=== PATIENT | male | born 1950 | race Caucasian/White ===

== ENCOUNTER 2019-08-03 08:00 | Outpatient (CLI) | payer MEDICARE, OTHER, SELFPAY ==
[2019-08-03 17:56] LABS: INR 0.96 (0.8-1.2)
[2019-08-03 18:03] LABS: Alanine Aminotransferase 26 U/L (0-41); Albumin Level 4.6 g/dL (3.5-5.2); Alkaline Phosphatase 78 IU/L (40-130); Anion Gap 17.2 (5-19); Blood Urea Nitrogen 14 mg/dL (8-23); Calcium 10.2 mg/dL (8.5-10.5); Carbon Dioxide 25 mmol/L (22-29); Chloride 103 mmol/L (98-107); Globulin 2.2 g/dL (1.3-4.6); Glomerular Filtration Rate 111.5 mL/min (90-130); Glucose 84 mg/dL (65-115); Osmolality Calculated 287 mOsm/kg (285-295); Potassium 4.2 mmol/L (3.5-5.1); Sodium 141 mmol/L (136-145); Total Bilirubin 1.2 mg/dL (0.15-1.2); Total Protein 6.8 g/dL (6.6-8.7)
[2019-08-03 18:14] LABS: Basophils % 0.4 %; Eosinophils % 0.4 %; Hemoglobin 15.6 g/dL (11.7-16.6); Lymphocytes # 0.9 10^3/uL (0.8-4.8); Lymphocytes % 15.7 %; Mean Corpuscular HGB Conc 31.8 g/dL (30.0-36.0); Mean Corpuscular Hemoglobin 28.7 pg (28.0-34.0); Mean Corpuscular Volume 90.1 fL (80-94); Mean Platelet Volume 10.4 fL (7.4-10.4); Monocytes # 0.4 10^3/uL (0.2-0.9); Monocytes % 7.9 %; Neutrophils # 4.2 10^3/uL (1.8-7.7); Neutrophils % 75.4 %; Nucleated Red Blood Cells % 0 %; Platelet Count 193 10^3/cmm (130-400); Red Blood Count 5.44 10^6/uL (4.1-5.3); Red Cell Distribution Width 13.7 % (12.1-15.1); White Blood Count 5.6 10^3/uL (4.0-10.0)
[2019-08-03 19:12] LABS: Aspartate Amino Transferase 27 U/L (0-40)
== END 2019-08-03 09:00 | disposition home or self-care (01) ==
LOC: RAD 01-11 13:32
PROVIDERS: Family Provider Family Medicine; PCP Family Medicine; Visit Provider Internal Medicine Cardiovascular Disease
DX: R07.89 Other chest pain (principal); Z79.01 Long term (current) use of anticoagulants
CPT/HCPCS: 80053; 85025; 85610; 86850; 86900

== ENCOUNTER 2019-08-04 18:39 | Outpatient (CLI) | payer MEDICARE, OTHER, SELFPAY ==
--- NOTE | 2019-08-03 16:30 | XRR_ITS ---
PROCEDURE INFORMATION: Exam: XR Chest, 2 Views Exam date and time: 08/03/2019 5:29 PM Age: 69 years old Clinical indication: Device placement; Other: Pre op; Additional info: Pre cath TECHNIQUE: Imaging protocol: XR of the chest Views: 2 views. COMPARISON: No relevant prior studies available. FINDINGS: Lungs: Unremarkable. No consolidation. The lungs are hyperinflated but clear. Pleural space: Unremarkable. No pleural effusion. No pneumothorax. Heart/Mediastinum: Unremarkable. No cardiomegaly. Bones/joints: Unremarkable. There is osteopenia with moderate degenerative changes. XR/XR chest 2V* [id number] IMPRESSION: No acute findings.
[2019-08-04] VITALS (10 sets, daily range): BP systolic 103–138; BP diastolic 52–89; PULSE 52–84; RESP 14–20; O2SAT 94–98; BMI 29.9
--- NOTE | 2019-08-04 10:38 | XACV_ITS ---
Ht: 185 cm Wt: 98 kg BSA: 2.26 m2 Gender: Male : 1950 Any Known Allergies: No known allergies Exam Priority: Routine Procedure(s): Procedure Description: Diagnostic procedure Procedure Description: Left Heart Catheterization Procedure Description: Left ventriculography Procedure Description: Coronary Angiography Procedure Description: Pressure Wire Diagnostic Cath Status: Elective Diagnostic Findings Mid Left Anterior Descending Coronary Artery: Mild 45% stenosis, 5.00 mm in length, JAMIL: 3 flow, FFR performed: ratio is 0.8. Coronary angiography shows right dominance. Left main is a medium caliber vessel with mild diffuse disease. Moderate calcification was noted in the artery. The left artery descending artery is a medium caliber vessel which appears to wrap around the LV apex minimally. The artery was found to have extensive calcification in the proximal and mid segment. In the mid LAD, there was a segmental narrowing of around 50 to 60% with extensive calcification. The proximal LAD, near the ostium was found to have heavy calcification with a moderate narrowing. The left circumflex artery is a medium to large caliber vessel with was found to have mild to moderate diffuse narrowing in the proximal and mid segment. At the mid segment, the artery appears to trifurcate. All the trifurcation branches also were found to have mild to moderate diffuse narrowing in the proximal segment. Extensive calcification was noted in the proximal and mid segment of the artery. The distal segments of the artery were found to have no significant stenotic lesions. The right coronary artery was found to have a tapering narrowing of around 95% towards the first RV branch. Moderate ostial narrowing with calcification was noted. The mid RCA was found to be totally occluded. Interventional Findings Fractional flow reserve was performed from beyond the mid LAD lesion. The FFR 0.8. The lesion does not look severe and the lesion in the ostial LAD is also calcified and does not look severe. Patient is asymptomatic. Plan will be medical treatment with perfusion scan. Conclusions This is a 69-year-old white male with history of hypertension, dyslipidemia had a calcium score which was found to be in the 6000 range. He has been complaining of some atypical chest symptoms and shortness of breath with activities. For further evaluation of his coronary status, a coronary angiogram was thought to be appropriate. Patient underwent left heart catheterization with left and right coronary angiogram and LV angiogram today. The findings are as follows. Moderate to heavy diffuse calcification was noted in the proximal to mid segments of all the 3 coronary arteries. There was a 50 to 60% stenosis with heavy calcification in the mid LAD. Moderate to heavy calcification in the proximal LAD, near to the ostium with a moderate narrowing. The right coronary artery was found to be totally occluded at the mid segment. Mild diffuse disease was noted in the other vessels. Normal LV size with an ejection fraction of around 50%. Slightly elevated LVEDP of 19 mmHg. Recommendations I reviewed and discussed the cardiac catheterization findings with Dr. Lund. It was thought to be appropriate to do an FFR to understand the functional significance of the stenosis in the proximal and mid LAD. The FFR of the mid LAD lesion was 0.8. There were some technical difficulties in advancing the catheters through the left anterior descending artery, because of the extensive calcification. Based on the above findings, it was decided to manage the patient medically for the time being. We may consider doing a myocardial perfusion imaging, sometime down the line, to evaluate for any significant coronary ischemia. Diagnostic RX Recommendation: medical therapy and/or counseling Ejection Fraction: 50.0 % Left Ventriculography Findings: The LV gram was performed the BURTON position. The LV cavity appears to be normal size. There is mild hypokinesia of the anteroapical region. Overall ejection fraction was around 50%. Pressures Phase:Rest AO : 99 mmHg / 65 mmHg ( 81 mmHg ) @ 12:05:00 PM 93 mmHg / 60 mmHg ( 76 mmHg ) @ 12:10:00 PM 94 mmHg / 62 mmHg ( 78 mmHg ) @ 12:11:00 PM 119 mmHg / 61 mmHg ( 85 mmHg ) @ 12:20:00 PM 119 mmHg / 59 mmHg ( 81 mmHg ) @ 12:20:00 PM 113 mmHg / 54 mmHg ( 73 mmHg ) @ 12:38:00 PM LV : 130 mmHg / -4 mmHg / @ 12:19:00 PM 130 mmHg / -1 mmHg / @ 12:20:00 PM 131 mmHg / -2 mmHg / @ 12:20:00 PM Valves Phase:DefaultPhase AV : 11.0 mmHg @ 6:25:32 PM 11.0 mmHg @ 6::32 PM AV Mean Gradient: 10.0 mmHg @ 6::32 PM 10.0 mmHg @ 6:25:32 PM Clinical Evaluation EBL: 5mL-10mL Procedural Details Procedure Consent Obtained. Pre-Procedure Time Out. Identified patient by full name and date of as verbalized by the patient/guarantor. Does the consent match the physician's order: Yes. Accurate & Complete Informed Consent: Yes. Inpatient/Outpatient History & Physical on Chart: Yes. If H&P is completed, is and addenduem needed: N/A; If yes, is the addendum complete: N/A. Visualize and Verify Site with Patient/Guarantor: N/A. Relevant Radiology Images available: Yes. Pre-op teaching completed and patient verbalized understanding. The risks, benefits, and alternatives of sedation and/or procedure were discussed by physician. The patient agrees to continue. Procedure started. PERRLA. Strong, equal hand material handler loader bilaterally. Lungs clear x 5 lobes. Oxygen started at 2liters/min via nasal canula. right groin was prepped with chloroprep then draped in the usual sterile fashion. right radial was prepped with chloroprep then draped in the usual sterile fashion. IV Site on Arrival: 18 gauge in the left forearm. IV Fluids: 0.9% NaCl at KVO. 0 mL infused prior to earthmoving labourer. Pre Procedural Pulses: bilateral dorsalis pedis was 2+. Pre Procedural Pulses: bilateral posterior tibial was 2+. Pre Procedural Pulses: bilateral radial was 3+. Physician notified. Baseline sample Acquired. HR: 73 BPM. Equipment: 6F - Radial. ACIST Manifold Kit Model BT 2000. Heparinized Saline (2 units/mL), 1000 mL bag. Cardiac Cath Pack. Physician arrived. Physician scrubbed in. Immediate Pre-Procedure Time Out. Correct Patient: Yes; Correct Procedure: Yes; Correct Site: Yes; Correct Patient Position: Yes; Correct Supplies: Yes; Dried Flammable Prep: Yes; Blood Products Available: No;. Lidocaine 1% infiltrated to the right radial. Arterial access obtained. A 5 thai Kana catheter in over wire. Multiple views taken of left coronary artery. Catheter redirected to the RCA. Multiple views taken of right coronary artery. Catheter out. A 5 thai JR4 catheter in over wire. Catheter out. A 5 thai Angled Pig catheter in over wire. EDP Sample taken: LV 130/-5,19; HR: 75 BPM; SpO2: 98%. LV gram performed in BURTON @ 10 mL/second for a total of 30 mL. EDP Sample taken: LV 130/-2,19; HR: 75 BPM; SpO2: 98%. Pullback taken: LV 131/-3,18; AO 119/61(85); Mean: 10mmHg, Peak to Peak: 11mmHg, SEP: 19sec/min; HR: 75 BPM; SpO2: 98%. Side port of sheath attached to Normal Saline flush at KVO to maintain patency. Dr. Lund called. Patient's family updated. [facility] Clinical Fraility Score: 3: Managing Well. Manager Administrative Services Indications: Suspected CAD. Chest Pain Symptom Assessment: Atypical Angina. Cardiovascular Instability: No. Dr. Lund arrived. Dr. Lund scrubbed in to perform intervention. 6 thai XB 3.5 guide catheter was inserted over the wire. FFR wire inserted. Wire out. Guide catheter out. 6 thai XB 3 guide catheter was inserted over the wire. FFR wire inserted. An FFR value of 0.79 was obtained for a lesion located at Mid LAD. Wire out. Guide catheter out. A TR Band was successful obtaining hemostatsis at the Right Radial artery insertion site. TR band placed. Hemostasis obtained. Post Procedure: Pulses reassessed and unchanged. PERRLA. Strong, equal hand material handler loader bilaterally. No VTE prophylaxis required. Fluoro: 17:01. Contrast type used: Omnipaque 300 mgI/mL, 500 mL bottle. [id number]. Post-op diagnosis: CAD. Complications: none. Estimated blood loss: 5mL-10mL. Procedure completed. Patient transferred by wheelchair to 1st floor. Fractional flow reserve measurements obtained. Medication's Wasted: Other = adenosine 59.3 mg. Medication's Wasted: Heparin = 1000 units. Medication's Wasted: Lidocaine 1% = 18 mL. Total IV fluids: 400 mL. Vital chart was stopped. Site: Right Radial artery Sheath Size: 6 Fr Hemostasis Method: TR Band Hemostasis Success: Successful Complication Findings: No complications occurred during the procedure. Intra/Post-Procedure Events Stroke - Undetermined: No Cardiac Arrest: No Procedure Medications Start: 4:53 PM Stop: 4:53 PM Medication: Versed Amount: 1 mg Route: I.V. Start: 4:54 PM Stop: 4:54 PM Medication: Fentanyl Amount: 50 mcg Route: I.V. Start: 4:58 PM Stop: 4:58 PM Medication: 0.9% Saline Amount: 250 ml Route: I.V. bolus Start: 5:01 PM Stop: 5:01 PM Medication: Verapamil Amount: 5 mg Route: I.A. Start: 5:05 PM Stop: 5:05 PM Medication: Heparin Amount: 5000 units Route: I.V. Start: 5:22 PM Stop: 5:22 PM Medication: Versed Amount: 1 mg Route: I.V. Start: 5:22 PM Stop: 5:22 PM Medication: Fentanyl Amount: 50 mcg Route: I.V. Start: 6:11 PM Stop: 6:11 PM Medication: Versed Amount: 1 mg Route: I.V. Start: 6:18 PM Stop: 6:18 PM Medication: Versed Amount: 1 mg Route: I.V. I, the attending physician, have reviewed and verified all procedure medications. Yes, all medications given per verbal order History/Risk Factors Hypertension: Yes Dyslipidemia: Yes Peripheral Arterial Disease (PAD): No Myocardial Infarction (CT): No Obesity: No Renal Disease: No Tobacco Use: Former Prior Interventions PCI: No CABG: No Valve Surgery: No Report Signatures Diagnostic Workflow - Finalized by:Dr Joshua Mcneal MD [facility] on 08/04/2019 8:43:20 PM Interventional Workflow - Finalized by: Dr. Dale Lund MD on 08/04/2019 6:39:56 PM
[2019-08-04] MEDS: diphenhydrAMINE 50 mg Capsule PO (16:05)
[2019-08-05 00:34] VITALS: BP 94/66; PULSE 68; RESP 15
[2019-08-05 03:58] VITALS: BP 98/61; PULSE 64; RESP 12; TEMP 36.5; O2SAT 95
[2019-08-05 04:08] LABS: Basophils % 0.4 %; Eosinophils # 0.1 10^3/uL (0.0-0.8); Eosinophils % 2.6 %; Hemoglobin 13.2 g/dL (11.7-16.6); Lymphocytes # 0.9 10^3/uL (0.8-4.8); Lymphocytes % 17.5 %; Mean Corpuscular HGB Conc 32.2 g/dL (30.0-36.0); Mean Corpuscular Hemoglobin 29.7 pg (28.0-34.0); Mean Corpuscular Volume 92.1 fL (80-94); Mean Platelet Volume 10.3 fL (7.4-10.4); Monocytes # 0.6 10^3/uL (0.2-0.9); Neutrophils # 3.5 10^3/uL (1.8-7.7); Neutrophils % 68.3 %; Nucleated Red Blood Cells % 0 %; Platelet Count 160 10^3/cmm (130-400); Red Blood Count 4.45 10^6/uL (4.1-5.3); Red Cell Distribution Width 13.9 % (12.1-15.1); White Blood Count 5.1 10^3/uL (4.0-10.0)
--- NOTE | 2019-08-05 04:15 | PC.NURSE ---
1944: removed 2 ml of air out of patient's right TR band, bruising noted above site, no hematoma noted. Continue Care. 2029 removed 3ml of air out of patient's right TR band, bruising noted above site, no hematoma or bleeding noted. Continue Care. 2114: Removed 2 ml of air out of patient's right TR band, bruising noted above site, no hematoma noted. Continue Care. 2199 Removed 2 ml of air out of patient's right TR band, bruising noted above site, no hematoma noted. Continue Care. TR band removed, cleaned site with betadyne on right radial area. Covered with 2x2 and secured with clear dressing. Care Continued.
[2019-08-05 04:27] LABS: Anion Gap 12.9 (5-19); Blood Urea Nitrogen 16 mg/dL (8-23); Carbon Dioxide 25 mmol/L (22-29); Chloride 106 mmol/L (98-107); Glomerular Filtration Rate 133.2 mL/min (90-130); Glucose 94 mg/dL (65-115); Osmolality Calculated 286 mOsm/kg (285-295); Potassium 3.9 mmol/L (3.5-5.1); Sodium 140 mmol/L (136-145)
[2019-08-05] MEDS: sodium chloride 0.9% 1,000 ML 50 ML IV (05:40)
[2019-08-05 07:35] VITALS: BP 96/59; PULSE 74; RESP 10; O2SAT 96
[2019-08-05 07:49] LABS: Chol HDL Ratio 3.13 mg/dL (1.0-5.00); Cholesterol 188 mg/dL (0-200); HDL Cholesterol 60 mg/dL (60-100); LDL Cholesterol Calculated 104 mg/dL (50-129); LDL HDL Ratio 1.73 RATIO (0.00-3.22); Triglycerides 119 mg/dL (0-150)
--- NOTE | 2019-08-05 08:31 | PC.NURSE ---
MD WOODED PATIENT TAKING HOME MEDICATIONS
[2019-08-05 10:50] VITALS: BP 96/59; PULSE 74; RESP 10; TEMP 36.5; O2SAT 96
--- NOTE | 2019-08-05 10:50 | P.DS_ITS ---
Discharge Providers Date of Admission: 08/04/19 18:39 Date of Discharge: August 05, 2019 Attending Provider at Admission: Joshua Mcneal MD Attending Provider at Discharge: Joshua Mcneal MD Primary Care Provider: Abram Shukla DO Reason for Visit Reason for Visit: Reason For Visit: Left Heart Cath Physical Exam Narrative: EXAM NARRATIVE: GENERAL: The patient is alert and oriented times three. Not in any acute distress. HEENT: No significant pallor, icterus or lymphadenopathy.Oral cavity: There are no mucous membrane lesions. NECK: Trachea appears to be central. No masses noted. No JVD or thyromegaly appreciated. RESPIRATORY: Chest is symmetrical. No intercostals muscle retraction or any a ccessory muscle activation. There is no chest wall tenderness. Breath sounds are heard bilaterally. No rales or rhonchi heard. No evidence of any consolidation. BREASTS: Deferred. HEART: The heart sounds are normal. No S3 or S4. No significant murmurs. No pericardial rub ABDOMEN: No vessel pulsations or distention. No tenderness. No organomegaly appreciated. Bowel sounds are normally heard. : Deferred. RECTAL: Deferred. LYMPHATIC: No lymphadenopathy noted in the neck or groin. EXTREMITIES: No edema or cyanosis. No clubbing. Peripheral pulses are palpated in fairly good volume and amplitude MUSCULOSKELETAL: No acute joint deformities or swelling SKIN: There are no significant scars or skin rash noted. NEUROPSYCHIATRIC: The patient is alert and oriented x3. Appears to be in a good mood. No tremors or rigidity noted. Discharge Data Data Completed and Pending: Completed Studies During Hospitalization Category Date Time Status SUPERVISOR POLICY CHANGE CLERKS request for service Routin e Exams 08/04/19 10:38 Completed XR chest 2V* 7104 6 Routine Exams 08/03/19 16:30 Completed The cardiac cath done on 08/04/2019 Mid Left Anterior Descending Coronary Artery: Mild 45% stenosis, 5.00 mm inlength, JAMIL: 3 flow, FFR performed: ratio is 0.8. Coronary angiography shows right dominance. Left main is a medium caliber vessel with mild diffuse disease. Moderate calcification was noted in the artery. The left artery descending artery is a medium caliber vessel which appearsto wrap around the LV apex minimally. The artery was found to have extensivecalcification in the proximal and mid segment. In the mid LAD, there was asegmental narrowing of around 50 to 60% with extensive calcification. Theproximal LAD, near the ostium was found to have heavy calcification with amoderate narrowing. The left circumflex artery is a medium to large caliber vessel with wasfound to have mild to moderate diffuse narrowing in the proximal and midsegment. At the mid segment, the artery appears to trifurcate. All the trifurcation branches also were found to have mi ld to moderate diffuse narrowing in the proximal segment. Extensive calcification was noted in theproximal and mid segment of the artery. The distal segments of the arterywere found to have no significant stenotic lesions. The right coronary artery was found to have a tapering narrowing of zafnus70% towards the first RV branch. Moderate ostial narrowing with calcificationwas noted. The mid RCA was found to be totally occluded. Labs from last 24 hours 08/05/19 08/05/19 08/05/19 03:35 03:35 03:35 WBC 5.1 RBC 4.45 Hgb 13.2 Hct 41.0 L MCV 92.1 MCH 29.7 MCHC 32.2 RDW 13.9 Plt Count 160 MPV 10.3 Neut % (Auto) 68.3 Lymph % (Auto) 17.5 [place] % (Auto) 11.0 Eos % (Auto) 2.6 Baso % (Auto) 0.4 Neut # (Auto) 3.5 Lymph # (Auto) 0.9 [place] # (Auto) 0.6 Eos # (Auto) 0.1 Baso # (Auto) 0.0 Nucleated RBC % (a uto) 0 Nucleated RBCs # 0.0 Sodium 140 Potassium 3.9 Chloride 106 Carbon Dioxide 25 Anion Gap 12.9 BUN 16 Creatinine 0.6 L GFR Calculation 133.2 H Glucose 94 Calculated Osmolal ity 286 Calcium 9.0 Triglycerides 119 Cholesterol 188 LDL Cholesterol, C alc 104 HDL Cholesterol 60 LDL/HDL Ratio 1.73 Cholesterol/HDL Ra shiv 3.13 Vitals: Last Vital Signs Temp 97.7 F 08/05/19 03:58 Pulse 74 08/05/19 07:35 Resp 10 L 08/05/19 07:35 BP 96/59 08/05/19 07:35 Pulse Ox 96 08/05/19 07:35 Discharge Plan Discharge Patient Disposition: Home, Self-Care Prescriptions: Continued aspirin [Adult Low Dose Aspirin] 81 mg tablet,delayed release (DR/EC) 81 mg PO DAILY RF: 0 cholecalciferol (vitamin D3) 50 mcg (2,000 unit) capsule 50 mcg PO DAILY RF: 0 Centrum Silver Men 300-600-300 mcg tablet 1 tab PO DAILY RF: 0 lisinopril 10 mg tablet 10 mg PO DAILY 30 Days Qty: 30 RF: 5 simvastatin 40 mg tablet 40 mg PO DAILY 30 Days Qty: 30 RF: 5 No Action PreserVision AREDS-2 226-022-58-1 ho-ddyv-ms-mg capsule 2 tab PO BID RF: 0 Discharge Orders: Discharge Order (Routine); Ordered 08/05/19 Ordered By: Joshua Mcneal Referrals: Joshua Mcneal MD [Physician] - (Please keep the appointment you already have scheduled with Dr. Mcneal on October 12 at 3:45pm at [facility]. Any questions or appointment changes, please call them at [phone]) Alisha Michaels FNP [Nurse Practitioner] - (You have a procedure site check with Alisha Rice APN at [facility] on August 11 at 3:00pm. Any questions or appointment changes, please call them at [phone]) Patient Instructions: Left Heart Catheterization (DC), Coronary Angioplasty (DC), Post Angiogram Home Care Instructions Activity Restrictions/Additional Instructions: Avoid any weightlifting with the right hand for the next 3 days. Strongly advised for low-cholesterol low-fat diet. [facility] Centralized Scheduling will be calling to set a Lexiscan/sestamibi/sestamibi stress test as an outpatient for next week. If you don't hear from them by Friday afternoon, please call them at [phone] Discharge Date/Time: 08/05/19 12:43 Discharge Attestations Time Spent in Discharge Care*: less than 30 min Quality Metrics Clinical Quality Measures During this hospital stay, did patient experience: None Coding Level of Care Code Acute Batch Mixer Operator for Tyree Scott
--- NOTE | 2019-08-05 12:16 | PC.CHAP ---
Pastoral Care Encounter/Spiritual Assessment Type of Contact [] Declined hospice case manager visit [] Patient/Family/Request visit [] Outpatient visit [] Follow-up visit [] Physician referral [] Code/Alert [x] Routine visit [] Staff referral [] Actively dying [] Patient sleeping [] Family support [] [] Out of room [] Palliative care [] [] Receiving care in room [] Pre-surgical visit [] Trauma [] Long length of stay [] ICU visit [] Other: Relational/Emotional Strength [x] Patient feels connected with others/family/visitors/staff [] Distress [] Loneliness/isolation [] Abandonment Spirituality of Patient [] Person of Marycarmen [] Attends Amish of their [place]en [] Believes in Prayer [] Reads Bible or Orthodox materials [x] There are Spiritual issues to be addressed Pickler Helper Interventions [] Prayer [x] Active listening [x] Non-anxious presence [x] Spiritual/emotional support [] Crisis/trauma care [x] Spiritual counseling [] Bereavement support [] Provided bereavement packet [] Provided Bible/devotional materials [] Provided toy/stuffed animal, coloring book to patient or family member [] Provided Communion [] Anointing/[place] [] Salvation [] Completed spiritual assessment [] Other: Impact on Illness or Injury [] Angry [] Fearful [] Anxious [] Often cries [] Exhaustion [] Unable to work [] Unable to attend rastafarian [] Unable to walk/stand [] Unable to read [] Unable to drive [] Unable to eat/drink [] Unable to sleep [] Unable to be with family [] Patient intubated [x] Other: n/a Summary Time spent with patient 8 minutes
== END 2019-08-05 12:43 | disposition home or self-care (01) ==
LOC: CSU 18:57 → OPCSU 08-05 13:33
PROVIDERS: Internal Medicine Cardiovascular Disease; Family Provider Family Medicine; PCP Family Medicine; Visit Provider Internal Medicine Cardiovascular Disease
DX: I25.10 Atherosclerotic heart disease of native coronary artery without angina pectoris (principal); I10 Essential (primary) hypertension; E78.5 Hyperlipidemia, unspecified; Z87.891 Personal history of nicotine dependence; Z82.49 Family history of ischemic heart disease and other diseases of the circulatory system; R93.1 Abnormal findings on diagnostic imaging of heart and coronary circulation; C83.00 Small cell B-cell lymphoma, unspecified site; Z79.01 Long term (current) use of anticoagulants
CPT/HCPCS: 12345; 36415; 71046; 80048; 80053; 80061; 85025; 85610; 86850; 86900; 93452; 93571; C1769; C1887; C1894; J0153; J1644; J2001; J2250; J3010; J3490; J7030; Q0163; Q9967

== ENCOUNTER → 2019-08-12 15:00 | Outpatient (BNVA) | payer MEDICARE, OTHER, SELFPAY | PROVIDERS: Family Provider Family Medicine; PCP Family Medicine; Visit Provider Nurse Practitioner Family | DX: I25.10 Atherosclerotic heart disease of native coronary artery without angina pectoris (principal) | CPT/HCPCS: 80048 ==

== ENCOUNTER → 2021-01-31 11:11 | Outpatient (BNVA) | payer MEDICARE, OTHER, SELFPAY | PROVIDERS: Family Provider Family Medicine; PCP Family Medicine; Visit Provider Internal Medicine Cardiovascular Disease | DX: E78.5 Hyperlipidemia, unspecified (principal); R07.89 Other chest pain; Z79.01 Long term (current) use of anticoagulants; Z87.891 Personal history of nicotine dependence; R06.02 Shortness of breath; I25.10 Atherosclerotic heart disease of native coronary artery without angina pectoris; I10 Essential (primary) hypertension | CPT/HCPCS: 80048; 80061; 80076 ==

== ENCOUNTER → 2021-08-02 10:03 | Outpatient (BNVA) | payer MEDICARE, OTHER, SELFPAY | PROVIDERS: Family Provider Family Medicine; PCP Family Medicine; Visit Provider Internal Medicine Cardiovascular Disease | DX: I25.10 Atherosclerotic heart disease of native coronary artery without angina pectoris (principal); R07.89 Other chest pain; E78.5 Hyperlipidemia, unspecified | CPT/HCPCS: 80061; 80076; 82550; 99214 ==

== ENCOUNTER → 2021-10-10 10:05 | Outpatient (BNVA) | payer MEDICARE, OTHER, SELFPAY | PROVIDERS: Family Provider Family Medicine; PCP Family Medicine; Visit Provider Family Medicine | DX: I25.10 Atherosclerotic heart disease of native coronary artery without angina pectoris (principal); R05.9 Cough, unspecified; E78.5 Hyperlipidemia, unspecified; I10 Essential (primary) hypertension; C83.00 Small cell B-cell lymphoma, unspecified site; J40 Bronchitis, not specified as acute or chronic | CPT/HCPCS: 85025; 87071; 87880 ==

== ENCOUNTER → 2022-08-01 11:02 | Outpatient (BNVA) | payer MEDICARE, OTHER, SELFPAY | PROVIDERS: Family Provider Family Medicine; PCP Family Medicine; Visit Provider Internal Medicine Cardiovascular Disease | DX: E78.5 Hyperlipidemia, unspecified (principal); I25.10 Atherosclerotic heart disease of native coronary artery without angina pectoris; I10 Essential (primary) hypertension; F41.1 Generalized anxiety disorder; Z87.891 Personal history of nicotine dependence | CPT/HCPCS: 36415; 80061; 80076; 99214 ==

== ENCOUNTER → 2022-09-09 13:48 | Outpatient (BNVA) | payer MEDICARE, OTHER, SELFPAY | PROVIDERS: Family Provider Family Medicine; PCP Family Medicine; Visit Provider Nurse Practitioner Family | DX: R05.9 Cough, unspecified (principal); R50.9 Fever, unspecified | CPT/HCPCS: 87400 ==

== ENCOUNTER → 2023-07-31 09:46 | Outpatient (BNVA) | payer MEDICARE, OTHER, SELFPAY | PROVIDERS: Family Provider Family Medicine; PCP Family Medicine; Visit Provider Internal Medicine Cardiovascular Disease | DX: I25.10 Atherosclerotic heart disease of native coronary artery without angina pectoris (principal); R93.1 Abnormal findings on diagnostic imaging of heart and coronary circulation; I10 Essential (primary) hypertension; E78.5 Hyperlipidemia, unspecified; C83.00 Small cell B-cell lymphoma, unspecified site; Z87.891 Personal history of nicotine dependence | CPT/HCPCS: 99214 ==

== ENCOUNTER → 2024-02-06 10:13 | Outpatient (BNVA) | payer MEDICARE, OTHER, SELFPAY | PROVIDERS: Family Provider Family Medicine; PCP Family Medicine; Visit Provider Nurse Practitioner Family | DX: I25.10 Atherosclerotic heart disease of native coronary artery without angina pectoris (principal); I10 Essential (primary) hypertension | CPT/HCPCS: 99214 ==

== ENCOUNTER → 2024-08-09 11:05 | Outpatient (BNVA) | payer MEDICARE, OTHER, SELFPAY | PROVIDERS: Family Provider Family Medicine; PCP Family Medicine; Visit Provider Internal Medicine Cardiovascular Disease | DX: I25.118 Atherosclerotic heart disease of native coronary artery with other forms of angina pectoris (principal); I10 Essential (primary) hypertension; E78.5 Hyperlipidemia, unspecified; C83.00 Small cell B-cell lymphoma, unspecified site; Z87.891 Personal history of nicotine dependence | CPT/HCPCS: 99214 ==

== ENCOUNTER → 2025-03-30 15:05 | Outpatient (BNVA) | payer MEDICARE, OTHER, SELFPAY | PROVIDERS: Family Provider Family Medicine; PCP Family Medicine; Visit Provider Internal Medicine Cardiovascular Disease | DX: I25.118 Atherosclerotic heart disease of native coronary artery with other forms of angina pectoris (principal); E78.5 Hyperlipidemia, unspecified; I10 Essential (primary) hypertension; C83.00 Small cell B-cell lymphoma, unspecified site; Z87.891 Personal history of nicotine dependence | CPT/HCPCS: 99214 ==